=== PATIENT | male | born 1965 | race Caucasian/White ===

== ENCOUNTER → 2017-03-11 | Day surgery (SDC) | payer MEDICARE, OTHER ==
[~2017-03-11] VITALS: Ht 162.6 cm; Wt 78.6 kg
[2017-03-11 07:14] LABS: CREATININE 1.1 mg/dL (0.7-1.2); POTASSIUM 4.3 mmol/L (3.5-5.1)
== END | disposition home or self-care (01) ==
LOC: FAS 06:43
PROVIDERS: Anesthesiology
DX: M23.221 Derangement of posterior horn of medial meniscus due to old tear or injury, right knee (principal); M23.241 Derangement of anterior horn of lateral meniscus due to old tear or injury, right knee; S83.511A Sprain of anterior cruciate ligament of right knee, initial encounter; M25.861 Other specified joint disorders, right knee; I10 Essential (primary) hypertension; F31.9 Bipolar disorder, unspecified; K58.9 Irritable bowel syndrome, unspecified; K21.9 Gastro-esophageal reflux disease without esophagitis; M19.90 Unspecified osteoarthritis, unspecified site; Z98.1 Arthrodesis status; Z88.1 Allergy status to other antibiotic agents; Z79.899 Other long term (current) drug therapy
CPT/HCPCS: 36415; 80048; J2405; J2704; J3010